=== PATIENT | female | born 1955 | race Caucasian/White ===

== ENCOUNTER → 2019-11-16 | Outpatient (CLI) | payer BC ==
[2019-11-16 15:22] LABS: CHLORIDE 104 mEq/L (98-107)
[2019-11-16 15:23] LABS: CLARITY URINE CLOUDY (CLEAR); COLOR URINE YELLOW (YELLOW); KETONES URINE TRACE (NEGATIVE); LEUKOCYTE ESTERASE URINE 2+ (NEGATIVE); NITRITE URINE NEGATIVE (NEGATIVE); OCCULT BLOOD URINE NEGATIVE (NEGATIVE); PH URINE 5.5 (4.5-8.0); PROTEIN URINE NEGATIVE (NEGATIVE)
[2019-11-16 15:28] LABS: C REACTIVE PROTEIN QUANT 1.9 mg/L (0.0-3.0)
[2019-11-16 15:29] LABS: LDL CHOLESTEROL 135 mg/dL (5-100)
[2019-11-16 15:30] LABS: HDL CHOLESTEROL 49 mg/dL (40-59)
[2019-11-16 15:31] LABS: T4 FREE 1.05 ng/dL (0.76-1.46)
[2019-11-16 15:39] LABS: BASOPHILS % 0.7 % (0.0-2.0); EOSINOPHILS % 2.5 % (0.0-5.0); HEMATOCRIT. 38.8 % (36.0-48.0); HEMOGLOBIN. 13.9 g/dL (12.0-16.0); LYMPHOCYTES % 45.4 % (20.0-50.0); MEAN CORPUSCULAR VOLUME 94.7 fL (81.0-99.0); MEAN PLATELET VOLUME 9.2 fl (7.4-10.4); MONOCYTES % 7.9 % (2.0-8.0); NEUTROPHILS % 43.5 % (40.0-76.0); PLATELET 239 x1000/uL (130-400); RED CELL DISTRIBUTION WIDTH 12.8 % (11.6-14.6)
== END | disposition home or self-care (01) ==
LOC: LAB 14:28
PROVIDERS: ATTEND Family Medicine
DX: M19.90 Unspecified osteoarthritis, unspecified site (principal); E11.9 Type 2 diabetes mellitus without complications; I10 Essential (primary) hypertension; N95.1 Menopausal and female climacteric states
CPT/HCPCS: 36415; 80053; 80061; 81003; 82670; 83001; 83036; 84402; 84439; 84443; 84481; 85025; 85651; 86038; 86140; 86376; 86430

== ENCOUNTER → 2019-12-14 | Outpatient (CLI) | payer BC | END | disposition home or self-care (01) | LOC: LAB 07:21 | PROVIDERS: ATTEND Family Medicine | DX: Z11.59 Encounter for screening for other viral diseases (principal) | CPT/HCPCS: C9803; U0003 ==

== ENCOUNTER → 2019-12-18 | Outpatient (CLI) | payer BC ==
[~2019-12-18] MED LIST: FURO-152 PO; GLIM4TAB36 PO; HYDR25TA PO; LEVO25TA2 PO; SITA25TA3 PO
== END | disposition home or self-care (01) ==
LOC: US 07:19
PROVIDERS: ATTEND Family Medicine
DX: K76.0 Fatty (change of) liver, not elsewhere classified (principal)
CPT/HCPCS: 76705

== ENCOUNTER 2020-02-15 16:02 | Emergency (ER) | payer MEDICARE, MEDICAID ==
[~2020-02-15] VITALS: Ht 167.6 cm; Wt 80.0 kg
[2020-02-15 18:05] LABS: CLARITY URINE CLEAR (CLEAR); COLOR URINE YELLOW (YELLOW); KETONES URINE NEGATIVE (NEGATIVE); LEUKOCYTE ESTERASE URINE 2+ (NEGATIVE); NITRITE URINE NEGATIVE (NEGATIVE); OCCULT BLOOD URINE NEGATIVE (NEGATIVE); PH URINE 7.5 (4.5-8.0); PROTEIN URINE NEGATIVE (NEGATIVE); SPECIFIC GRAVITY URINE 1.008 (1.005-1.030); UROBILINOGEN URINE 0.2 E.U./dL (0.2-1.0)
[2020-02-15 18:06] LABS: BASOPHILS % 0.6 % (0.0-2.0); HEMATOCRIT. 38.5 % (36.0-48.0); HEMOGLOBIN. 13.9 g/dL (12.0-16.0); LYMPHOCYTES % 45.1 % (20.0-50.0); MEAN CORPUSCULAR HEMOGLOBIN 33.1 pg (28.0-32.0); MEAN CORPUSCULAR VOLUME 91.9 fL (81.0-99.0); MEAN PLATELET VOLUME 9.1 fl (7.4-10.4); MONOCYTES % 8.6 % (2.0-8.0); NEUTROPHILS % 43.7 % (40.0-76.0); PLATELET 242 x1000/uL (130-400); RED BLOOD CELL COUNT 4.19 mill/uL (4.2-5.4); RED CELL DISTRIBUTION WIDTH 12.4 % (11.6-14.6)
[2020-02-15 18:12] LABS: CHLORIDE 100 mEq/L (98-107)
[2020-02-15 18:16] LABS: ETHANOL BLOOD < 10 mg/dL
[2020-02-15 18:19] LABS: *AMPHETAMINES SCREEN URINE NEGATIVE (NEGATIVE); *BARBITURATES SCREEN URINE NEGATIVE (NEGATIVE); *BENZODIAZEPINES SCREEN URINE NEGATIVE (NEGATIVE); *COCAINE SCREEN URINE NEGATIVE (NEGATIVE); METHADONE URINE SCREEN NEGATIVE (NEGATIVE); OPIATES URINE SCREEN NEGATIVE (NEGATIVE); PHENCYCLIDINE URINE SCREEN NEGATIVE (NEGATIVE)
[2020-02-15 18:20] LABS: CANNABINOID URINE SCREEN NEGATIVE (NEGATIVE)
[2020-02-15] MEDS ORDERED: POTASSIUM CHLORIDE 20MEQ TABLET SR PO ONE (18:30)
[2020-02-15] MEDS ORDERED: OLANZAPINE 5MG TABLET PO SCH (22:30)
[2020-02-15] MEDS ORDERED: POTASSIUM CHLORIDE 20MEQ TABLET SR PO NR (22:30)
[2020-02-16] MEDS ORDERED: SITA25TA3 PO (09:32)
[2020-02-16] MEDS ORDERED: FURO-152 PO (09:33)
[2020-02-16] MEDS ORDERED: GLIM4TAB36 PO (09:33)
[2020-02-16] MEDS ORDERED: HYDR25TA PO (09:37)
[2020-02-16] MEDS ORDERED: LEVO25TA2 PO (09:38)
[2020-02-16] MEDS: HYDROCHLOROTHIAZIDE 25MG TABLET PO SCH (12:15)
[2020-02-16] MEDS ORDERED: POTASSIUM CHLORIDE 10MEQ TABLET SR PO ONE (12:15)
[2020-02-16] MEDS ORDERED: GLIMEPIRIDE 2MG TABLET PO ONE (12:15)
[2020-02-16 14:23] LABS: CHLORIDE 103 mEq/L (98-107)
[2020-02-17 15:30] VITALS: BP 146/87
== END 2020-02-17 19:13 ==
LOC: EEVIPCON 16:02 → ER 16:02
DX: R45.851 Suicidal ideations (principal); E87.6 Hypokalemia; Z11.59 Encounter for screening for other viral diseases; Z75.1 Person awaiting admission to adequate facility elsewhere; I10 Essential (primary) hypertension; E11.9 Type 2 diabetes mellitus without complications; Z86.59 Personal history of other mental and behavioral disorders
CPT/HCPCS: 36415; 80053; 80305; 80307; 80320; 80329; 81003; 85025; 87426; 87635; 93005; 99283; C9803; 99285; G0480

== ENCOUNTER → 2020-04-14 | Outpatient (CLI) | payer BC, MEDICARE, MEDICAID | END | disposition home or self-care (01) | LOC: RAD 10:44 | DX: M51.37 Other intervertebral disc degeneration, lumbosacral region (principal); M54.5 Low back pain | CPT/HCPCS: 72100 ==

== ENCOUNTER → 2020-06-08 | Outpatient (CLI) | payer BC ==
[2020-06-08 10:53] LABS: BASOPHILS % 0.8 % (0.0-2.0); HEMATOCRIT. 43.9 % (36.0-48.0); HEMOGLOBIN. 15.5 g/dL (12.0-16.0); LYMPHOCYTES % 38.5 % (20.0-50.0); MEAN CORPUSCULAR HEMOGLOBIN 32.4 pg (28.0-32.0); MEAN PLATELET VOLUME 8.2 fl (7.4-10.4); MONOCYTES % 6.9 % (2.0-8.0); NEUTROPHILS % 51.8 % (40.0-76.0); PLATELET 290 x1000/uL (130-400); RED BLOOD CELL COUNT 4.77 mill/uL (4.2-5.4); RED CELL DISTRIBUTION WIDTH 12.6 % (11.6-14.6)
[2020-06-08 11:57] LABS: CHLORIDE 102 mEq/L (98-107)
[2020-06-08 12:05] LABS: LDL CHOLESTEROL 173 mg/dL (5-100)
[2020-06-08 12:07] LABS: HDL CHOLESTEROL 57 mg/dL (40-59); T4 FREE 1.06 ng/dL (0.76-1.46)
[2020-06-08 15:39] LABS: VITAMIN B12 SERUM 416 pg/mL (211-911)
[2020-06-09 07:08] LABS: THYROID PEROXIDASE ANTIBODY < 9 IU/mL (0-34); VITAMIN D 25-OH 17.6 ng/mL (30.0-100.0)
== END | disposition home or self-care (01) ==
LOC: LAB 10:18
PROVIDERS: ATTEND Family Medicine
DX: I10 Essential (primary) hypertension (principal); E11.65 Type 2 diabetes mellitus with hyperglycemia; E03.9 Hypothyroidism, unspecified; E78.5 Hyperlipidemia, unspecified
CPT/HCPCS: 36415; 80053; 80061; 82306; 82607; 83036; 84439; 84443; 84481; 85025; 86376

== ENCOUNTER → 2020-06-10 | Outpatient (CLI) | payer BC | END | disposition home or self-care (01) | LOC: MRI 08:57 | PROVIDERS: ATTEND Family Medicine | DX: M47.26 Other spondylosis with radiculopathy, lumbar region (principal); M48.061 Spinal stenosis, lumbar region without neurogenic claudication; M54.6 Pain in thoracic spine; M99.13 Subluxation complex (vertebral) of lumbar region; M54.2 Cervicalgia | CPT/HCPCS: 72148 ==

== ENCOUNTER → 2020-07-08 | Outpatient (CLI) | payer BC | END | disposition home or self-care (01) | LOC: RAD 14:06 | PROVIDERS: ATTEND Family Medicine | DX: M25.551 Pain in right hip (principal) | CPT/HCPCS: 73502 ==

== ENCOUNTER → 2020-07-26 | Outpatient (CLI) | payer BC ==
[2020-07-26 13:04] LABS: CHLORIDE 104 mEq/L (98-107)
[2020-07-26 13:14] LABS: T4 FREE 1.08 ng/dL (0.76-1.46)
[2020-07-26 13:21] LABS: LDL CHOLESTEROL 178 mg/dL (5-100)
[2020-07-26 13:23] LABS: HDL CHOLESTEROL 57 mg/dL (40-59)
[2020-07-27 08:30] LABS: CLARITY URINE CLEAR (CLEAR); COLOR URINE DARK YELLOW (YELLOW); KETONES URINE TRACE (NEGATIVE); LEUKOCYTE ESTERASE URINE 2+ (NEGATIVE); NITRITE URINE NEGATIVE (NEGATIVE); OCCULT BLOOD URINE NEGATIVE (NEGATIVE); PH URINE 5.5 (4.5-8.0); PROTEIN URINE TRACE (NEGATIVE); SPECIFIC GRAVITY URINE 1.025 (1.005-1.030); UROBILINOGEN URINE 0.2 E.U./dL (0.2-1.0)
[2020-07-28 08:08] LABS: MICROALBUMIN RANDOM URINE 12.1 ug/mL (Not Estab.)
== END | disposition home or self-care (01) ==
LOC: LAB 12:15
PROVIDERS: ATTEND Family Medicine
DX: E11.65 Type 2 diabetes mellitus with hyperglycemia (principal); E55.9 Vitamin D deficiency, unspecified; E03.9 Hypothyroidism, unspecified; E78.5 Hyperlipidemia, unspecified; R53.83 Other fatigue; I10 Essential (primary) hypertension
CPT/HCPCS: 36415; 80053; 80061; 82306; 83036; 84439; 84443; 84481